=== PATIENT | male | born 1955 | race African-American/Black ===

== ENCOUNTER 2021-06-12 16:23 | Emergency (ER) | payer OTHER ==
[~2021-06-12] VITALS: Ht 172.7 cm; Wt 77.3 kg
[2021-06-12 16:27] VITALS: BP 105/70
== END 2021-06-12 18:38 | disposition left against medical advice (07) ==
LOC: EMS 16:23
DX: M79.18 Myalgia, other site (principal); Z53.21 Procedure and treatment not carried out due to patient leaving prior to being seen by health care provider

== ENCOUNTER → 2024-05-20 | Emergency (ER) | payer MEDICARE, OTHER ==
[~2024-05-20] VITALS: Ht 180.3 cm; Wt 77.3 kg
[~2024-05-20] MED LIST: IOHEXOL 350 MG/ML 100 ML VIAL ONE; SODIUM CHLORIDE 0.9% 0 ML ONE
[2024-05-20 18:35] LABS: BASOPHILS % (AUTO) 0.2 % (0.0-2.0); EOSINOPHILS % (AUTO) 0.2 % (1.0-6.0); HEMATOCRIT 42.8 % (41-53); HEMOGLOBIN 13.6 g/dL (13.5-17.5); LYMPHOCYTES # (AUTO) 0.9 K/uL (1.0-4.8); LYMPHOCYTES % (AUTO) 8.3 % (22.0-44.0); MEAN CORPUSCULAR HEMOGLOBIN 27.6 pg (26.0-34.0); MEAN CORPUSCULAR HGB CONC 31.8 G/dL (31.0-37.0); MEAN CORPUSCULAR VOLUME 87 fL (80-100); MONOCYTES # (AUTO) 0.9 K/uL (0.1-1.0); MONOCYTES % (AUTO) 7.8 % (2.0-9.0); NEUTROPHILS # (AUTO) 9.2 K/uL (1.8-7.7); NEUTROPHILS % (AUTO) 83.5 % (40.0-70.0); PLATELET COUNT (AUTO) 256 K/uL (150-450); RED BLOOD CELL COUNT(AUTO) 4.94 MIL/uL (4.50-5.90); RED CELL DISTRIBUTION WIDTH 16.2 % (11.5-14.5); WHITE BLOOD COUNT (AUTO) 11.1 K/uL (4.5-11.0)
[2024-05-20 18:46] LABS: ANION GAP 6 mmol/L (8-16); CALCIUM, TOTAL 9.3 mg/dL (8.8-10.5); CARBON DIOXIDE 30 mmol/L (22-29); CHLORIDE 99 mmol/L (98-107); CREATININE 0.81 mg/dL (0.60-1.30); GLOMERULAR FILTR. RATE CALC > 60 mL/min (>60); GLUCOSE,RANDOM 113 mg/dL (70-110); SODIUM SERUM 135 mmol/L (136-145); UREA NITROGEN, BLOOD 9 mg/dL (7-18)
[2024-05-20 18:54] LABS: TROPONIN I-HIGH SENSITIVITY 7 ng/L (<76)
[2024-05-20 20:31] VITALS: BP 144/90; PULSE 108; RESP 18; TEMP 98.2
== END | disposition left against medical advice (07) ==
LOC: EMS 17:55
DX: R06.00 Dyspnea, unspecified (principal); F19.10 Other psychoactive substance abuse, uncomplicated; R07.9 Chest pain, unspecified; R05.9 Cough, unspecified
CPT/HCPCS: 99285; 71045; 80048; 83880; 84484; 85025; 85379; 36415; 93005; G0480; J7050